=== PATIENT | female | born 1955 | race Caucasian/White ===

== ENCOUNTER 2016-08-24 10:14 | Emergency (ER) | payer MEDICAID | END 2016-08-24 11:38 | disposition home or self-care (01) | LOC: D.ER 10:14 | DX: G43.909 Migraine, unspecified, not intractable, without status migrainosus (principal) ==

== ENCOUNTER → 2016-09-15 14:44 | Outpatient (CLI) | payer MEDICAID | END | disposition home or self-care (01) | LOC: D.MRI 14:44 | DX: R51 Headache (principal) ==

== ENCOUNTER → 2016-10-01 07:51 | Outpatient (CLI) | payer MEDICAID | LOC: D.MRI 07:51 | DX: M54.2 Cervicalgia (principal) ==

== ENCOUNTER 2016-12-01 08:47 | Emergency (ER) | payer MEDICAID | END 2016-12-01 13:26 | disposition left against medical advice (07) | LOC: D.ER 08:47 | DX: R21 Rash and other nonspecific skin eruption (principal) ==